=== PATIENT | male | born 1975 | race African-American/Black ===

== ENCOUNTER 2017-01-10 09:30 | Emergency (ER) | payer SELFPAY ==
[~2017-01-10] VITALS: Ht 167.6 cm; Wt 68.0 kg
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
[2017-01-10 11:37] VITALS: BP 117/66
== END 2017-01-10 12:00 | disposition home or self-care (01) ==
LOC: ER 09:30
DX: S09.90XA Unspecified injury of head, initial encounter (principal); Y08.89XA Assault by other specified means, initial encounter; Y93.89 Activity, other specified; Y99.8 Other external cause status; Y92.89 Other specified places as the place of occurrence of the external cause
CPT/HCPCS: 70450; 70486; 71010; 72125; 99284-25